=== PATIENT | female | born 1955 | race Caucasian/White ===

== ENCOUNTER 2022-09-19 08:41 | Outpatient (CLI) | payer MEDICARE ==
[2022-09-19] MEDS ORDERED: Magnevist 469MG/ML 20 ML VIAL ONE (12:23)
== END 2022-09-19 08:42 | disposition home or self-care (01) ==
LOC: CSHMRI 08:41
PROVIDERS: ATTEND Otolaryngology Otolaryngic Allergy
DX: H90.3 Sensorineural hearing loss, bilateral (principal)
CPT/HCPCS: 70553; 82565